=== PATIENT | female | born 1965 | race Caucasian/White ===

== ENCOUNTER 2024-11-18 23:41 | Emergency (ER) | payer OTHER, SELFPAY ==
[2024-11-18 23:43] VITALS: BP 130/90
[2024-11-18 23:55] VITALS: BMI 33.5
[2024-11-19] VITALS: BP 134/86
[2024-11-19] MEDS: NSS 1000 IV (00:13)
[2024-11-19] MEDS: BENADRYL 25 MG IV (00:16)
[2024-11-19] MEDS: COMPAZINE 10 MG IV (00:22)
--- NOTE | 2024-11-19 00:22 | ED.GENMED ---
History of Present Illness
General
Chief Complaint: Headache
Source: patient
Exam Limitations: none
Time Seen by Provider: 11/18/24 23:57
Nursing documentation reviewed up to this point in time: agreed with
History of Present Illness
History of Present Illness:
The patient is a pleasant 59-year-old female with a past medical history of migraines who reports gradual onset of migraine headache that started at 6 AM yesterday morning. Patient denies vision changes, vomiting, fever, rash, sore throat and
joint pain. She reports that she has had migraine headaches like this in the past. Patient reports she did not try to take any medication, including Tylenol for the headache. Patient describes it as pain at the back of her head. Patient reports
that she is due for upcoming foot surgery so was told not to take any NSAIDs.
Past History
Past History
ED Past Medical History: Hypercholesterolemia and Other (Migraine headaches)
ED Past Surgical History:
Patient has exhibited threatening behavior?: No
PSI?: No
Social History
Tobacco: Non-smoker
Alcohol: Other
Drug: None
Personal: Other
Living: other
Employment: Other
Family History
Family History: Other
Review of Systems
Review of Systems
Allergies reviewed?: Yes
All Other Systems: ROS reviewed and negative except as documented in HPI and ROS
Constitutional: Reports no symptoms
EENT: Reports no symptoms
Respiratory: Reports no symptoms
Cardiac: Reports no symptoms
ABD/GI: Reports nausea
: Reports no symptoms
Musculoskeletal: Reports no symptoms
Skin: Reports no symptoms
Neurological: Reports headache
Endocrine: Reports no symptoms
Hematologic/Lymphatic: Reports no symptoms
Psychiatric: Reports no symptoms
Phy Exam
Physical Exam
Physical Exam:
Physical Exam
General: Slightly uncomfortable but nontoxic. Conversational
Neck: supple. no meningeal signs. normal psoterior pharynx
Heart: s1/s2 regular rate and rhythm, no murmur. equal radial pulses.
Lungs: no acute respiratory distress. clear bilaterally
Abdomen: normal bowel sounds. not tender. no CVAT
Neuro: alert and oriented. no focal neurological deficits. Equal sensation of bilateral arms and legs. PERRL, extraocular muscles intact, visual velez intact. 5 strength in all extremities without drift
Skin: no rash
Psychiatric: well kept. interactive and cooperative
Extremities: no edema. no calf tenderness. negative homans. good distal pulses
Course
Orders/Labs/Results
Orders:
Orders
11/19/24 00:08
0.9% Sodium Chloride 1000 ml [Nss] 1,000 ml IV BOLUS
11/19/24 00:09
Diphenhydramine [Benadryl] 25 mg IV NOW STA
Prochlorperazine [Compazine] 10 mg IV NOW STA
11/19/24 00:46
Acetaminophen [Tylenol] 1,000 mg .ROUTE .STK-MED ONE
11/19/24 00:47
Acetaminophen [Tylenol] 1,000 mg PO NOW STA
Vital Signs
Initial and Last Documented VS:
Initial Vital Signs
Temp Pulse Resp BP Pulse Ox
98.4 F 76 20 130/90 98
11/18/24 23:43 11/18/24 23:43 11/18/24 23:43 11/18/24 23:43 11/18/24 23:43
Last Documented Vital Signs
Temp Pulse Resp BP Pulse Ox
98.4 F 78 18 134/86 96
11/18/24 23:43 11/19/24 00:00 11/19/24 00:00 11/19/24 00:00 11/19/24 00:22
MDM/Problems Addressed
Differential Diagnosis Includes:
Acute migraine headache, subarachnoid hemorrhage, tension headache
MDM/Problems Addressed:
Patient presents with acute headache
Chronic conditions affecting care:
History of migraine headaches
Acute Exacerbation and/or Progression of Chronic Illness:
Patient likely has acute onset of migraine headache
*Pulse Oximetry
SaO2: 96
Oxygen Mode of Delivery: Room air
Patient hypoxic: no
Comment: Patient is 96% on room air. She is not hypoxic
*EKG
Interpreted by ED Provider?: NA
*[employer] Interpretation
Rate: normal
Interpretation: normal
Rhythm: sinus
*Critical Care Note
Total Time (30-74mins, 75-104mins- exclusive of procedures): Not Applicable
Data Reviewed
Review of Other/Old Records Reveals: Testing (Normal cardiac echo 2022)
Source: patient
Patient Management
Social determinants of health affecting care: Living situation and Strong social support
Update Note
Update Note:
Patient feels so much better. She has a normal neurological exam. She describes this headache as her typical severe migraine, therefore, I do not feel she is having a subarachnoid hemorrhage. There is no fever or rash to suggest meningitis
ED Attending Note
-
Portions of this chart may have been created with voice recognition software.� Occasional wrong word or��sound alike� substitutions may have occurred due to the inherent limitations of voice recognition software.
Discharge Plan
Departure
Patient Disposition: Home (Routine Discharge)
Patient with high blood pressure during this ER visit?: Yes
Condition: Good
Covid-19: Not Applicable
Discharge Problem:
Acute headache
Instructions: Headache, Adult (DC), BLOOD PRESSURE
Interventions
Interventions:
*Risk Screen - Suicide Last Done: 11/18/24 23:43
*General Assessment Last Done: 11/18/24 23:56
*Neglect/Abuse Screening Last Done: 11/18/24 23:43
*ED- Fall Risk Assessment Last Done: 11/18/24 23:56
*ED COVID-19 Vaccine History Last Done: 11/18/24 23:56
ED- Neurological Assessment Last Done: 11/19/24 00:05
Discharge Date and Time
Discharge Date/Time: 11/19/24 01:27
Print Language: SWAZI
[2024-11-19] MEDS: TYLENOL 1000 MG PO (00:47)
--- NOTE | 2024-11-19 02:39 | DOWNTIME ---
There was a [employer] Downtime on 11/19/2024 from 0100 to 11/19/2024 at 0235. Downtime documentation of patient's care, including medication administrations, has been reconciled in the electronic record per guidelines. Refer to the
patient's paper chart under the miscellaneous tab to see printed paper medication records and downtime forms.
== END 2024-11-19 01:27 | disposition home or self-care (01) ==
LOC: EMR 23:41
PROVIDERS: EMERGENCY PHYSICIAN Emergency Medicine; FAMILY PHYSICIAN Family Medicine
DX: R51.9 Headache, unspecified (principal); E78.00 Pure hypercholesterolemia, unspecified
CPT/HCPCS: 99284; 96374; 96375; 96361